=== PATIENT | female | born 1970 | race Caucasian/White ===

== ENCOUNTER 2019-07-10 10:48 | Emergency (ER) | payer OTHER, MEDICAID, SELFPAY ==
[2019-07-10 11:01] VITALS: BP 124/74; PULSE 66; RESP 16; TEMP 36.6; O2SAT 99
--- NOTE | 2019-07-10 11:29 | ED.URI ---
HPI - URI/Sore Throat General Chief Complaint: Upper Respiratory Infection Stated Complaint: Pos Sinus Infection Time Seen by Provider: 07/10/19 11:25 Source: patient and RN notes reviewed Mode of arrival: ambulatory Limitations: no limitations History of Present Illness HPI Narrative: 49-year-old female presents with concern for chronic sinusitis. Reports frontal sinus pain, low-grade fever, jaw pain, tooth pain, green sinus discharge. Reports symptoms started yesterday. MD elicited complaint: nasal congestion Related Data Home Medications Medication Instructions Recorded Confirmed levothyroxine 04/10/19 trazodone 04/10/19 vortioxetine [Trintellix] mg 04/10/19 Allergies Allergy/AdvReac Type Severity Reaction Status Date / Time No Known Allergies Allergy Verified 07/10/19 11:13 Review of Systems Review of Systems: Narrative: CONSTITUTIONAL: Reports malaise, low-grade fever. EYES: Denies visual changes, redness, or discharge. ENT: Reports rhinorrhea, congestion, sinus pain, otalgia and sore throat. CARDIOVASCULAR: Denies chest pain, palpitations, or edema. RESPIRATORY: Reports occasional cough. Denies dyspnea. GASTROINTESTINAL: Denies abdominal pain, nausea, vomiting, diarrhea SKIN: Denies rash or itching. MUSCULOSKELETAL: Denies myalgia. NEUROLOGIC: Reports headache. All systems reviewed & are unremarkable except as noted in HPI and below PMFSH Social History Social History Smoking status: Never smoker Alcohol intake: current Gender identity (if verbalized by the patient): Female Comments At time of signature, agree with nursing past medical, surgical, social and family history. There is no relevant family history pertinent to the presenting complaint Exam Narrative: Exam Narrative: GENERAL: Well-appearing, well-nourished, and in no acute distress. HEAD: Normocephalic EYES: PERRLA, conjunctivae clear ENT: Nares clear, turbinates edematous and erythematous, purulent discharge, frontal sinus tenderness. Mucous membranes moist. TM pearly kim with dull light reflex bilaterally; no tragal tenderness. Oropharynx erythematous without lesions. Tonsils not enlarged and without exudate, no drooling, no hoarseness, no trismus. NECK: Supple. No lymphadenopathy CHEST: Clear to auscultation, breath sounds equal. No wheezing, rhonchi, rales, or stridor. No respiratory distress, speaks in full sentences. HEART: Regular rate and rhythm. No murmur heard. Normal peripheral pulses. SKIN: Warm, dry, no rash. NEURO: Alert and oriented x3. PSYCH: Normal mood and affect Course Course Emergency Course: Patient is aware of diagnosis, understands and agrees to treatment plan. Anticipatory guidance given. Patient agrees to follow-up as directed and is aware of reasons to seek care at the emergency department. Portions of this record may have been created with voice recognition software Vital Signs Vital signs: Vital Signs Temperature 97.8 F 07/10/19 11:01 Pulse Rate 66 07/10/19 11:01 Respiratory Rate 16 07/10/19 11:01 Blood Pressure 124/74 07/10/19 11:01 Pulse Oximetry 99 07/10/19 11:01 Temperature 97.8 F 07/10/19 11:01 Pulse Rate 66 07/10/19 11:01 Respiratory Rate 16 07/10/19 11:01 Blood Pressure 124/74 07/10/19 11:01 Pulse Oximetry 99 07/10/19 11:01 Reviewed. MDM - URI/Sore Throat MDM Narrative Medical decision making narrative: Differential diagnosis considered: Strep pharyngitis, allergic rhinitis, upper respiratory tract infection, sinusitis, rhinosinusitis, nasopharyngitis. viral pharyngitis, otitis media, otitis externa, pneumonia, bronchitis, viral cough syndrome, viral syndrome, and influenza. Exam findings show no acute concerns or changes; patient is non-toxic appearing and is in no distress. Patient is appropriate for outpatient treatment and follow-up. Critical Care Time Critical Care Time Critical Care Time: No
== END 2019-07-10 11:38 | disposition home or self-care (01) ==
PROVIDERS: Emergency Provider Nurse Practitioner; PCP Internal Medicine
DX: J32.1 Chronic frontal sinusitis (principal)
CPT/HCPCS: 99213; G0463

== ENCOUNTER 2019-11-14 11:44 | Emergency (ER) | payer OTHER, MEDICAID, SELFPAY ==
--- NOTE | 2019-11-14 12:09 | ED.FEMALEGU ---
HPI - Female Genitourinary General Chief complaint: Urogenital-Female Stated complaint: uti Time Seen by Provider: 11/14/19 12:20 Source: patient and RN notes reviewed Mode of arrival: ambulatory Limitations: no limitations History of Present Illness HPI Narrative: 49-year-old female presents with concern for urinary tract infection. Reports symptoms started yesterday after swimming in the [place]. Reports burning, suprapubic pressure. Denies fever, abnormal vaginal discharge, nausea, vomiting, malaise. Reports taking Azo yesterday. MD elicited complaint: UTI Related Data Home Medications Medication Instructions Recorded Confirmed trazodone 04/10/19 alprazolam 11/14/19 bupropion HCl mg PO 11/14/19 estradiol VAGINAL 11/14/19 levothyroxine [Euthyrox] 11/14/19 vortioxetine [Trintellix] mg 11/14/19 Allergies Allergy/AdvReac Type Severity Reaction Status Date / Time No Known Allergies Allergy Verified 07/10/19 11:13 Review of Systems Review of Systems: Narrative: CONSTITUTIONAL: Denies malaise, chills, sweats, or fever. CARDIOVASCULAR: Denies chest pain, palpitations, or edema. RESPIRATORY: Denies cough or dyspnea. GASTROINTESTINAL: Denies abdominal pain, nausea, vomiting, diarrhea GENITOURINARY: Reports dysuria, hematuria, frequency, urgency, suprapubic pressure.. MUSCULOSKELETAL: Denies myalgia. All systems reviewed & are unremarkable except as noted in HPI and below PMFSH Social History Social History Smoking status: Never smoker Alcohol intake: current Gender identity (if verbalized by the patient): Female Comments At time of signature, agree with nursing past medical, surgical, social and family history. There is no relevant family history pertinent to the presenting complaint Exam Narrative: Exam Narrative: GENERAL: Well-appearing, well-nourished, and in no acute distress. HEAD: Normocephalic. EYES: PERRLA, conjunctivae clear. NECK: Supple. No lymphadenopathy CHEST: Clear to auscultation. No respiratory distress. HEART: Regular rate and rhythm. No murmur heard. Normal peripheral pulses. ABDOMEN: Soft, nontender upon palpation, nondistended, normal active bowel sounds, no palpable or pulsatile masses, no guarding. No CVA tenderness SKIN: Warm, dry, no rash. NEURO: Alert and oriented x3. PSYCH: Normal mood and affect Course Course Emergency Course: Patient is aware of diagnosis, understands and agrees to treatment plan. Anticipatory guidance given. Patient agrees to follow-up as directed and is aware of reasons to seek care at the emergency department. Portions of this record may have been created with voice recognition software Vital Signs Vital signs: Reviewed. MDM - Female Genitourinary MDM Narrative Medical decision making narrative: Exam findings and imaging show no acute concerns or changes; patient is non-toxic appearing and is in no distress. Patient is appropriate for outpatient treatment and follow-up. Differential Diagnosis Differential diagnosis: Likely urinary tract infection and cystitis Lab Data Attestation: I reviewed the patient's lab results. Critical Care Time Critical Care Time Critical Care Time: No Discharge Plan Discharge Clinical Impression: Symptoms of urinary tract infection Patient Disposition: Home, Self-Care Condition: Stable Instructions: Antibiotic Form, Urinary Tract Infection in Women (ED) Additional Instructions: We will send a urine culture off to the lab; if the culture identifies an organism that the prescribed antibiotic will not treat, you will receive a phone call from an urgent care staff member and an appropriate antibiotic will be prescribed. -Your symptoms should begin to improve within a day of starting antibiotics. But you should finish all the antibiotic pills you get. Otherwise your infection might come back. -Also recommend: drink more fluid, and urinate more frequen
[2019-11-14 12:15] VITALS: BP 120/71; PULSE 61; RESP 16; TEMP 35.7; O2SAT 98
--- NOTE | 2019-11-14 12:20 | PC.NURSE ---
in br to obtain ua spec.
== END 2019-11-14 12:44 | disposition home or self-care (01) ==
PROVIDERS: Emergency Provider Nurse Practitioner; PCP Internal Medicine
DX: R30.0 Dysuria (principal); R10.30 Lower abdominal pain, unspecified; E03.9 Hypothyroidism, unspecified; F41.9 Anxiety disorder, unspecified; F32.9 Major depressive disorder, single episode, unspecified
CPT/HCPCS: 81003; 87077; 87086; 87088; 87186; 99213; G0463

== ENCOUNTER 2020-01-28 09:31 | Emergency (ER) | payer OTHER, MEDICAID, SELFPAY ==
--- NOTE | 2020-01-28 09:39 | ED.URI ---
HPI - URI/Sore Throat General Chief Complaint: Upper Respiratory Infection Stated Complaint: ear pain /sinus headache/chest pains Time Seen by Provider: 01/28/20 09:48 Source: patient and RN notes reviewed Mode of arrival: ambulatory Limitations: no limitations History of Present Illness HPI Narrative: 56-year-old female with history of chronic sinus infection presents with concern of foul tasting sinus drainage, sinus pressure, pain, sinus headache, bilateral ear pain, swollen glands, fatigue. Reports 1 week history of cough which is improving. Reports occasional shortness of breath and heaviness when she breathes. Denies fever, body aches, chills, sweats. MD elicited complaint: nasal congestion Related Data Home Medications Medication Instructions Recorded Confirmed bupropion HCl [Wellbutrin XL] 150 mg PO DAILY 01/28/20 01/28/20 levothyroxine 112 mcg PO DAILY 01/28/20 01/28/20 vortioxetine [Trintellix] 20 mg PO DAILY 01/28/20 01/28/20 Allergies Allergy/AdvReac Type Severity Reaction Status Date / Time No Known Allergies Allergy Verified 01/28/20 09:49 Review of Systems Review of Systems: Narrative: CONSTITUTIONAL: Reports malaise, fatigue. Denies chills, sweats, or fever. EYES: Denies visual changes, redness, or discharge. ENT: Reports rhinorrhea, congestion, sinus pain, otalgia and sore throat. CARDIOVASCULAR: Denies chest pain, palpitations, or edema. RESPIRATORY: Reports cough, shortness of breath GASTROINTESTINAL: Denies abdominal pain, nausea, vomiting, diarrhea SKIN: Denies rash or itching. MUSCULOSKELETAL: Denies myalgia. NEUROLOGIC: Reports headache. All systems reviewed & are unremarkable except as noted in HPI and below PMFSH Past Medical History Medical History (Updated 01/28/20 @ 09:57 by Rosa Hou NP) Anxiety Depression Deviated septum 1999 Hypothyroidism Migraine Surgical History Surgical History (Updated 01/04/20 @ 11:53 by Janki Verde CMA) H/O breast augmentation 2013 H/O sinus surgery Open Window 2004 Social History Social History (Updated 01/07/20 @ 15:04 by Carolina Morse CMA) Smoking status: Never smoker Alcohol intake: current Gender identity (if verbalized by the patient): Female Comments At time of signature, agree with nursing past medical, surgical, social and family history. There is no relevant family history pertinent to the presenting complaint Exam Narrative: Exam Narrative: GENERAL: Well-appearing, well-nourished, and in no acute distress. HEAD: Normocephalic EYES: PERRLA, conjunctivae clear ENT: Nares clear, turbinates edematous and erythematous, sinus tenderness. Mucous membranes moist. TM pearly kim with dull light reflex bilaterally; no tragal tenderness. Oropharynx erythematous without lesions. Tonsils not enlarged and without exudate, no drooling, no hoarseness, no trismus, uvula midline. NECK: Supple. No lymphadenopathy CHEST: Clear to auscultation, breath sounds equal. No wheezing, rhonchi, rales, or stridor. No respiratory distress, speaks in full sentences. HEART: Regular rate and rhythm. No murmur heard. SKIN: Warm, dry, no rash. NEURO: Alert and oriented x3. PSYCH: Normal mood and affect Course Course Emergency Course: Patient is aware of diagnosis, understands and agrees to treatment plan. Anticipatory guidance given. Patient agrees to follow-up as directed and is aware of reasons to seek care at the emergency department. Portions of this record may have been created with voice recognition software Vital Signs Vital signs: Vital Signs Temperature 98.7 F 01/28/20 09:43 Pulse Rate 66 01/28/20 09:43 Respiratory Rate 16 01/28/20 09:43 Blood Pressure 115/76 01/28/20 09:43 Pulse Oximetry 100 01/28/20 09:43 Temperature 98.7 F 01/28/20 09:43 Pulse Rate 66 01/28/20 09:43 Respiratory Rate 16 01/28/20 09:43 Blood Pressure 115/76 01/28/20 09:43 Pulse Oximetry 100 01/28/20 09:43 Reviewed.
[2020-01-28 09:43] VITALS: BP 115/76; PULSE 66; RESP 16; TEMP 37.1; O2SAT 100
== END 2020-01-28 10:02 | disposition home or self-care (01) ==
PROVIDERS: Emergency Provider Nurse Practitioner; PCP Internal Medicine
DX: J32.9 Chronic sinusitis, unspecified (principal); J40 Bronchitis, not specified as acute or chronic; Z20.828 Contact with and (suspected) exposure to other viral communicable diseases; F41.9 Anxiety disorder, unspecified; F32.9 Major depressive disorder, single episode, unspecified; E03.9 Hypothyroidism, unspecified
CPT/HCPCS: 99213; G0463

== ENCOUNTER 2020-03-17 16:16 | Emergency (ER) | payer OTHER, MEDICAID, SELFPAY ==
[2020-03-17 16:25] VITALS: BP 119/94; PULSE 70; RESP 16; TEMP 36; O2SAT 100
[2020-03-17 16:33] VITALS: BP 119/94; PULSE 70; RESP 16; TEMP 36; O2SAT 100
--- NOTE | 2020-03-17 16:42 | ED.GENADULT ---
HPI - General Adult General Chief complaint: Abdominal Pain Stated complaint: abd pain Time Seen by Provider: 03/17/20 16:43 Source: patient and RN notes reviewed Mode of arrival: ambulatory Limitations: no limitations History of Present Illness HPI narrative: 50-year-old female presents with complaints of nausea and vomiting 3 days ago. Vomiting without blood or diarrhea. Symptoms has resolved since Tuesday03/14/20. No treatment. No current abdominal pain or cramping. Tolerating po intake well. No current exacerbating factors. Denies fever or chills. Denies headache, dizziness, back pain, dysuria, and blood in stool. LMP post menopausal. The patient reports she have not been diagnosed with COVID-19. Reena says she needs a COVID-19 test to return to work and evaluation. The patient reports she is not waiting for the results of a COVID-19 lab test. The patient reports she do not have fever, weakness, or fatigue. The patient reports she do not have a new or worsening cough or shortness of breath. Denies chest pain. The patient reports she do not have any rhinorrhea, congestion, sore or throat, loss of taste. Denies recent traveling. Denies concerns for COVID-19 or exposures been home with limited outdoor exposure except for essential household needs, work, and return home. At this time, patient is not suspected of having COVID-19. Some parts of this dictation were generated by voice recognition software and may contain typographical and/or grammatical inaccuracies. Related Data Home Medications Medication Instructions Recorded Confirmed bupropion HCl [Wellbutrin XL] 300 mg PO DAILY 01/28/20 03/17/20 vortioxetine [Trintellix] 20 mg PO DAILY 01/28/20 03/17/20 trazodone 100 mg PO DAILY 03/17/20 03/17/20 Allergies Allergy/AdvReac Type Severity Reaction Status Date / Time No Known Allergies Allergy Verified 01/28/20 09:49 Review of Systems Review of Systems: Narrative: CONSTITUTIONAL: Denies fever, chills, sweats. EYES: Denies visual changes, redness, discharge. ENT: Denies rhinorrhea, congestion, sore throat, otalgia. CARDIOVASCULAR: Denies chest pain, palpitations, edema. RESPIRATORY: Denies dyspnea, wheezing, cough. GASTROINTESTINAL: Denies abdominal pain, diarrhea. Complains of nausea and vomiting-Resolved GENITOURINARY: Denies dysuria, hematuria, abnormal discharge. SKIN: Denies rash or itching. MUSCULOSKELETAL: Denies acute back pain, joint pain, or myalgia. NEUROLOGIC: Denies numbness or focal weakness. PSYCHIATRIC: Denies anxiety or depression. All other systems reviewed are negative, except as documented in HPI and below. [facility] Past Medical History Medical History Anxiety Depression Deviated septum 1999 Hypothyroidism Migraine Surgical History Surgical History H/O breast augmentation 2013 H/O sinus surgery Open Window 2004 Family History Family History (Updated 03/17/20 @ 16:55 by SOULEYMANE Christopher) Father , Congenital heart defect at age 35 Family history of congestive heart failure Mother , Brain aneurysm at age 53 No problems noted. Social History Social History (Updated 03/17/20 @ 16:57 by SOULEYMANE Christopher) Smoking status: Never smoker Tobacco type: cigarettes Second hand tobacco smoke exposure: Yes (Significant other) Alcohol intake: current Substance use: never Living arrangements: with family Occupation/Education: occupation Additional occupation/education comments: [employer] Gender identity (if verbalized by the patient): Female Sexual Orientation (if Verbalized by the Patient): Straight or Heterosexual Comments At time of signature, I have reviewed and agree with nursing past medical, surgical, social, and family history. Please see nursing chart for further information
== END 2020-03-17 16:57 | disposition home or self-care (01) ==
PROVIDERS: Emergency Provider Nurse Practitioner Family; PCP Internal Medicine
DX: K52.9 Noninfective gastroenteritis and colitis, unspecified (principal); Z20.828 Contact with and (suspected) exposure to other viral communicable diseases; E03.9 Hypothyroidism, unspecified; F32.9 Major depressive disorder, single episode, unspecified
CPT/HCPCS: 99213; G0463

== ENCOUNTER 2021-01-16 12:08 | Emergency (ER) | payer OTHER, MEDICAID, SELFPAY ==
--- NOTE | ~2021-01-16 | XR_ITS ---
EXAMINATION: XR knee RT min 4V DATE: 01/16/2021 12:37 INDICATION: Right knee injury. TECHNIQUE: 4 views of right knee were obtained. COMPARISON: None. FINDINGS: Bone alignment is normal. No fracture. Joint spaces are normal. No knee joint effusion. IMPRESSION: 1. Normal right knee. Reviewed, dictated and finalized at location B. IMPRESSION: 1. Normal right knee.
[2021-01-16 12:23] VITALS: BP 130/89; PULSE 58; RESP 16; TEMP 36.6; O2SAT 100
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
== END 2021-01-16 13:01 | disposition home or self-care (01) ==
PROVIDERS: Emergency Provider Nurse Practitioner; PCP Internal Medicine
DX: S80.01XA Contusion of right knee, initial encounter (principal); W51.XXXA Accidental striking against or bumped into by another person, initial encounter; E03.9 Hypothyroidism, unspecified; F32.9 Major depressive disorder, single episode, unspecified; F41.9 Anxiety disorder, unspecified
CPT/HCPCS: 73564; 99213; G0463

== ENCOUNTER 2021-02-05 11:33 | Emergency (ER) | payer OTHER, MEDICAID, SELFPAY ==
[2021-02-05 11:45] VITALS: BP 121/69; PULSE 61; RESP 16; TEMP 35.9; O2SAT 99
--- NOTE | 2021-02-05 12:33 | ED.URI ---
HPI - URI/Sore Throat General Chief Complaint: Upper Respiratory Infection Stated Complaint: Congestion,Runny Nose Source: patient and RN notes reviewed Limitations: no limitations History of Present Illness HPI Narrative: The vaccinated patient, who is a non-smoker/nondrinker, presents with sinus problem. Patient states she is followed by ENT with prior surgeries, the last in 2005. She now complains of a typical 2-day history of upper gum discomfort, postnasal drip, congestion. No fever, cough, sore throat, earache; she has had negative Covid screening by her work/school,no S OB, loss of taste/smell, wheezing/sneezing, CP. Symptoms are mild unrelieved with OTC preparations like Flonase and Mucinex. Related Data Home Medications Medication Instructions Recorded Confirmed bupropion HCl [Wellbutrin XL] 300 mg PO DAILY 01/28/20 02/05/21 vortioxetine [Trintellix] 20 mg PO DAILY 01/28/20 02/05/21 trazodone 100 mg PO DAILY 03/17/20 02/05/21 Allergies Allergy/AdvReac Type Severity Reaction Status Date / Time No Known Allergies Allergy Verified 02/05/21 11:52 Review of Systems Review of Systems: General/Constitutional: No weight loss,fever Eyes: N0: Redness,discharge Ears/Nose/Throat: No: Epistaxis,ear discharge Respiratory: Denies: Hemoptysis Gastrointestinal: No Vomiting, Bleeding-rectal Skin: No Lumps, eruption Neurologic: No Focal Weakness,Sz Hematologic: Denies: Petechiae/Purpura Psychiatric: No: Suicida ideationl All Other Systems: Reviewed and Negative [facility] Past Medical History Medical History Anxiety Depression Deviated septum 1999 Genital herpes Hypothyroidism Migraine Surgical History Surgical History H/O breast augmentation 2013 H/O sinus surgery Open Window 2004 Family History Family History Father , Congenital heart defect at age 35 Family history of congestive heart failure Mother , Brain aneurysm at age 53 No problems noted. Social History Social History Smoking status: Never smoker Tobacco type: cigarettes Second hand tobacco smoke exposure: Yes (Significant other) Alcohol intake: current Alcohol use details: occasional Substance use: never Additional occupation/education comments: [employer] Gender identity (if verbalized by the patient): Female Sexual Orientation (if Verbalized by the Patient): Straight or Heterosexual Comments At time of signature, agree with nursing past medical, surgical, social and family history. There is no relevant family history pertinent to the presenting complaint Exam Narrative: General Appearance: Well appearing, Well nourished EYE: PERRLA, Conjunctiva clear Ears: Auditory canal normal, TM normal Nose: Rhinorrhea, Mucousal erythema, sinus tenderness Mouth/Throat: MM moist, Uvula midline, Pharyngeal erythema Neck: Supple, No adenopathy Respiratory: No respiratory distress, Breath sounds equal, Clear to auscultation Cardiovascular: RRR, No JVD Musculoskeletal: Non tender, Normal strength Skin: Warm, Dry Neurological: A&O x3, CN II-XII intact Psychiatric: Normal mood, Normal affect Course Vital Signs Vital signs: Vital Signs Temperature 96.7 F L 02/05/21 11:45 Pulse Rate 61 02/05/21 11:45 Respiratory Rate 16 02/05/21 11:45 Blood Pressure 121/69 02/05/21 11:45 Pulse Oximetry 99 02/05/21 11:45 Temperature 96.7 F L 02/05/21 11:45 Pulse Rate 61 02/05/21 11:45 Respiratory Rate 16 02/05/21 11:45 Blood Pressure 121/69 02/05/21 11:45 Pulse Oximetry 99 02/05/21 11:45 Discharge Plan Discharge Clinical Impression: Rhinosinusitis Patient Disposition: Home, Self-Care Condition: Stable Instructions: Sinusitis (ED) Presc
[2021-02-06 18:57] LABS: SARS-CoV-2 RNA PCR Negative
== END 2021-02-05 12:40 | disposition home or self-care (01) ==
PROVIDERS: Emergency Provider Emergency Medicine; PCP Internal Medicine
DX: J32.9 Chronic sinusitis, unspecified (principal); Z20.822 Contact with and (suspected) exposure to COVID-19; E03.9 Hypothyroidism, unspecified; F41.9 Anxiety disorder, unspecified; F32.9 Major depressive disorder, single episode, unspecified
CPT/HCPCS: 99213; C9803; G0463; U0003; U0005

== ENCOUNTER 2021-03-14 12:20 | Emergency (ER) | payer OTHER, MEDICAID, SELFPAY ==
[2021-03-14 12:29] VITALS: BP 143/76; PULSE 63; RESP 15; TEMP 36.3; O2SAT 100
--- NOTE | 2021-03-14 12:48 | ED.DENTAL ---
HPI - Dental/Oral General Chief complaint: Dental/Oral Stated complaint: left lower toothache Time Seen by Provider: 03/14/21 12:29 Source: patient Mode of arrival: ambulatory Limitations: no limitations History of Present Illness HPI Narrative: Left lower teeth pain started 2 days ago. History of broken teeth at that area, could not afford to have crown 2 years ago. Patient denies any fever, chills, nausea, vomiting, headache, difficulty swallowing or breathing. Related Data Home Medications Medication Instructions Recorded Confirmed bupropion HCl [Wellbutrin XL] 300 mg PO DAILY 01/28/20 02/05/21 vortioxetine [Trintellix] 20 mg PO DAILY 01/28/20 02/05/21 trazodone 100 mg PO DAILY 03/17/20 02/05/21 Allergies Allergy/AdvReac Type Severity Reaction Status Date / Time No Known Allergies Allergy Verified 03/14/21 12:29 Review of Systems Review of Systems: CONSTITUTIONAL: Denies fever, chills, or sweats. EYES: Denies visual changes, redness, or discharge. ENT: Denies rhinorrhea, congestion, sore throat, or otalgia. CARDIOVASCULAR: Denies chest pain, palpitations, or edema. RESPIRATORY: Denies cough or dyspnea. GASTROINTESTINAL: Denies abdominal pain, nausea, vomiting, or diarrhea. GENITOURINARY: Denies dysuria or hematuria. SKIN: Denies rash or itching. MUSCULOSKELETAL: Denies back pain, joint pain, or myalgia. NEUROLOGIC: Denies headache, numbness, or weakness. PSYCHIATRIC: Denies anxiety or depression. [facility] Past Medical History Medical History Anxiety Depression Deviated septum 1999 Genital herpes Hypothyroidism Migraine Surgical History Surgical History H/O breast augmentation 2013 H/O sinus surgery Open Window 2004 Family History Family History Father , Congenital heart defect at age 35 Family history of congestive heart failure Mother , Brain aneurysm at age 53 No problems noted. Social History Social History Smoking status: Never smoker Tobacco type: cigarettes Second hand tobacco smoke exposure: Yes (Significant other) Alcohol intake: current Alcohol use details: occasional Substance use: never Additional occupation/education comments: [email or web address] Gender identity (if verbalized by the patient): Female Sexual Orientation (if Verbalized by the Patient): Straight or Heterosexual Exam Narrative: General appearance: Well-developed, well-nourished Skin: Normal color Head: Normocephalic, nontraumatic Eyes: Clear conjunctiva ENT: Oropharynx normal, ears normal, nose normal Neck: Supple, nontender Chest and respiratory: Airway patent, no respiratory distress, no accessory muscle use Heart: Regular rate/rhythm Vascular: Normal peripheral pulses, normal capillary refill. Neurologic: Alert and oriented ?3, [employer] is normal as tested, no gross motor deficit HENMT: Teeth image: 1. Broken tooth 2. Dental decay 3. Dental decay surrounded by inflamed gum, no abscess Course Course Emergency Course: Stable Vital Signs Vital signs: Vital Signs Temperature 36.3 C L 03/14/21 12:29 Pulse Rate 63 03/14/21 12:29 Respiratory Rate 15 03/14/21 12:29 Blood Pressure 143/76 H 03/14/21 12:29 Pulse Oximetry 100 03/14/21 12:29 Temperature 36.3 C L 03/14/21 12:29 Pulse Rate 63 03/14/21 12:29 Respiratory Rate 15 03/14/21 12:29 Blood Pressure 143/76 H 03/14/21 12:29 Pulse Oximetry 100 03/14/21 12:29 MDM - Dental/Oral
[2021-03-14 13:05] VITALS: BP 142/70; PULSE 70; RESP 18; O2SAT 100
== END 2021-03-14 13:05 | disposition home or self-care (01) ==
PROVIDERS: Emergency Provider Emergency Medicine; PCP Internal Medicine
DX: K02.9 Dental caries, unspecified (principal); F41.9 Anxiety disorder, unspecified; F32.A Depression, unspecified; E03.9 Hypothyroidism, unspecified; Z77.22 Contact with and (suspected) exposure to environmental tobacco smoke (acute) (chronic)
CPT/HCPCS: 99283

== ENCOUNTER 2023-02-16 11:50 | Outpatient (CLI) | payer OTHER, MEDICAID, SELFPAY ==
[2023-02-16 13:29] LABS: Basophils Absolute Auto 0.1 K/mm3 (0.0-0.1); Eosinophils Absolute Auto 0.1 K/mm3 (0-0.3); Eosinophils Percent Auto 1.5 % (0-4.4); Hematocrit 37.1 % (37.0-47.0); Hemoglobin 11.7 g/dL (12.0-15.0); Immature Granulocyte Absolute 0.01 K/mm3 (0.00-0.031); Immature Granulocyte Percent A 0.2 % (0-0.5); Lymphocytes Absolute Auto 1.28 K/mm3 (0.9-3.2); Lymphocytes Percent Auto 20.7 % (18.3-44.2); Mean Corpuscular HGB Conc 31.5 g/dl (32-36); Mean Corpuscular Hemoglobin 28.9 pg (26-34); Mean Corpuscular Volume 91.6 fl (80-100); Monocytes Absolute Auto 0.6 K/mm3 (0.1-0.6); Monocytes Percent Auto 9.9 % (2.6-8.5); Neutrophils Absolute Auto 4.1 K/mm3 (1.3-6.7); Neutrophils Percent Auto 66.7 % (45.5-73.1); Platelet Count Result 324 k/mm3 (150-375); Red Blood Count 4.05 M/mm3 (4.2-5.4); Red Cell Distribution Width 12.8 % (11.5-14.5); White Blood Count 6.2 K/mm3 (4.5-10.0)
[2023-02-16 14:23] LABS: Thyroid Stimulating Hormone 0.292 uIU/mL (0.465-4.680)
[2023-02-16 14:37] LABS: Alanine Aminotransferase 15 U/L (6-35); Albumin Level 3.8 g/dL (3.5-5.1); Alkaline Phosphatase 61 U/L (38-126); Anion Gap 4 mmol/L (8-16); Aspartate Amino Transferase 30 U/L (14-36); Bilirubin,Total 0.4 mg/dL (0.2-1.3); Blood Urea Nitrogen 10 mg/dL (7-17); Carbon Dioxide 35 mmol/L (22-30); Chloride 103 mmol/L (98-107); Estimated Glomerular Filt Rate > 60; Glucose 109 mg/dL (65-110); Potassium 2.8 mmol/L (3.4-5.0); Sodium 142 mmol/L (137-145)
[2023-02-19 13:03] LABS: Testosterone Total 16 ng/dL (2-45)
[2023-02-20 06:57] LABS: FSH 102.1 mIU/mL (***); LH 35.3 mIU/mL (***); Progesterone <0.2 ng/mL (***)
[2023-02-21 16:41] LABS: Estrogen 66 pg/mL
[2023-02-22 07:31] LABS: Immunoglobulin A 189 mg/dL (47-310); TTG IGA AB <1.0 U/mL (<15.0)
== END 2023-02-16 11:51 | disposition home or self-care (01) ==
LOC: ANHGOSHLAB 11:52
PROVIDERS: PCP Internal Medicine; Visit Provider Nurse Practitioner
DX: Z13.29 Encounter for screening for other suspected endocrine disorder (principal); E34.9 Endocrine disorder, unspecified; F32.9 Major depressive disorder, single episode, unspecified; F41.9 Anxiety disorder, unspecified; E03.9 Hypothyroidism, unspecified; N89.8 Other specified noninflammatory disorders of vagina; N95.8 Other specified menopausal and perimenopausal disorders
CPT/HCPCS: 36415; 80053; 82533; 82672; 82784; 83001; 83002; 84144; 84403; 84443; 85025; 86364

== ENCOUNTER 2023-02-18 09:50 | Outpatient (CLI) | payer OTHER, MEDICAID, SELFPAY ==
[2023-02-18 16:47] LABS: Anion Gap 3 mmol/L (8-16); Blood Urea Nitrogen 9 mg/dL (7-17); Calcium 9.1 mg/dL (8.4-10.2); Carbon Dioxide 35 mmol/L (22-30); Chloride 104 mmol/L (98-107); Estimated Glomerular Filt Rate > 60; Glucose 92 mg/dL (65-110); Potassium 3.3 mmol/L (3.4-5.0); Sodium 142 mmol/L (137-145)
== END 2023-02-18 09:51 | disposition home or self-care (01) ==
LOC: ANHGOSHLAB 09:52
PROVIDERS: PCP Internal Medicine; Visit Provider Nurse Practitioner
DX: E87.6 Hypokalemia (principal)
CPT/HCPCS: 36415; 80048

== ENCOUNTER 2023-03-03 10:25 | Outpatient (CLI) | payer OTHER, MEDICAID, SELFPAY ==
[2023-03-03 18:42] LABS: Basophils Absolute Auto 0.1 K/mm3 (0.0-0.1); Basophils Percent Auto 1.2 % (0.2-1.2); Eosinophils Absolute Auto 0.2 K/mm3 (0-0.3); Hematocrit 34.4 % (37.0-47.0); Hemoglobin 11.2 g/dL (12.0-15.0); Immature Granulocyte Absolute 0.01 K/mm3 (0.00-0.031); Immature Granulocyte Percent A 0.2 % (0-0.5); Lymphocytes Absolute Auto 1.18 K/mm3 (0.9-3.2); Lymphocytes Percent Auto 17.9 % (18.3-44.2); Mean Corpuscular HGB Conc 32.6 g/dl (32-36); Mean Corpuscular Hemoglobin 30.1 pg (26-34); Mean Corpuscular Volume 92.5 fl (80-100); Monocytes Absolute Auto 0.5 K/mm3 (0.1-0.6); Monocytes Percent Auto 7.1 % (2.6-8.5); Neutrophils Absolute Auto 4.6 K/mm3 (1.3-6.7); Neutrophils Percent Auto 70.6 % (45.5-73.1); Platelet Count Result 302 k/mm3 (150-375); Red Blood Count 3.72 M/mm3 (4.2-5.4); Red Cell Distribution Width 13.2 % (11.5-14.5); White Blood Count 6.6 K/mm3 (4.5-10.0)
[2023-03-03 19:15] LABS: Thyroid Stimulating Hormone 0.955 uIU/mL (0.465-4.680)
[2023-03-03 19:19] LABS: Alanine Aminotransferase 13 U/L (6-35); Albumin Level 3.6 g/dL (3.5-5.1); Alkaline Phosphatase 53 U/L (38-126); Anion Gap 3 mmol/L (8-16); Aspartate Amino Transferase 21 U/L (14-36); Bilirubin,Total 0.3 mg/dL (0.2-1.3); Blood Urea Nitrogen 9 mg/dL (7-17); Calcium 8.6 mg/dL (8.4-10.2); Carbon Dioxide 35 mmol/L (22-30); Chloride 103 mmol/L (98-107); Estimated Glomerular Filt Rate > 60; Glucose 90 mg/dL (65-110); Potassium 2.7 mmol/L (3.4-5.0); Sodium 141 mmol/L (137-145)
== END 2023-03-03 10:26 | disposition home or self-care (01) ==
LOC: ANHGOSHLAB 10:29
PROVIDERS: Nurse Practitioner; PCP Internal Medicine; Visit Provider Clinical Nurse Specialist
DX: E87.6 Hypokalemia (principal); E03.9 Hypothyroidism, unspecified; D64.9 Anemia, unspecified
CPT/HCPCS: 36415; 80053; 84443; 85025

== ENCOUNTER 2023-03-07 10:02 | Outpatient (CLI) | payer OTHER, MEDICAID, SELFPAY ==
[2023-03-07 12:01] LABS: Anion Gap 0 mmol/L (8-16); Blood Urea Nitrogen 9 mg/dL (7-17); Calcium 8.9 mg/dL (8.4-10.2); Carbon Dioxide 36 mmol/L (22-30); Chloride 104 mmol/L (98-107); Estimated Glomerular Filt Rate > 60; Glucose 87 mg/dL (65-110); Potassium 3.3 mmol/L (3.4-5.0); Sodium 140 mmol/L (137-145)
[2023-03-07 12:29] LABS: Iron 72 ug/dL (37-170)
[2023-03-07 12:39] LABS: Percent Iron Saturation 30 % (20-50)
[2023-03-07 13:06] LABS: Folic Acid 8.8 ng/mL (2.76->20)
== END 2023-03-07 10:03 | disposition home or self-care (01) ==
LOC: ANHLAB 10:03
PROVIDERS: PCP Internal Medicine; Visit Provider Clinical Nurse Specialist
DX: D64.9 Anemia, unspecified (principal); E87.6 Hypokalemia
CPT/HCPCS: 36415; 80048; 82607; 82728; 82746; 83540; 83550

== ENCOUNTER 2023-03-15 10:28 | Outpatient (CLI) | payer OTHER, MEDICAID, SELFPAY ==
--- NOTE | ~2023-03-15 | XR_ITS ---
EXAMINATION: XR abdomen/kub 1V DATE: 03/15/2023 10:50 INDICATION: Diarrhea. TECHNIQUE: A supine view of the abdomen on 2 radiographs was obtained. COMPARISON: None. FINDINGS: There are no dilated loops of bowel. There is a small volume of stool in the colon. IMPRESSION: 1. Normal bowel gas pattern. Reviewed, dictated and finalized at location E.
== END 2023-03-15 10:29 | disposition home or self-care (01) ==
LOC: ANHIMG 10:34
PROVIDERS: PCP Internal Medicine; Visit Provider Nurse Practitioner
DX: R19.7 Diarrhea, unspecified (principal); R14.0 Abdominal distension (gaseous); R63.4 Abnormal weight loss; R19.8 Other specified symptoms and signs involving the digestive system and abdomen
CPT/HCPCS: 74018

== ENCOUNTER 2023-08-03 15:54 | Emergency (ER) | payer OTHER, MEDICAID, SELFPAY ==
--- NOTE | ~2023-08-03 | XR_ITS ---
EXAMINATION: XR shoulder LT min 2V INDICATION: Left shoulder pain TECHNIQUE: Four views of the left shoulder are submitted. COMPARISON: 08/17/2018 FINDINGS: Normal alignment. No fracture. Glenohumeral and acromioclavicular joint spaces are normal. Soft tissues are unremarkable. IMPRESSION: 1. No acute osseous abnormality. Reviewed, dictated and finalized at location B. [employer]
[2023-08-03 16:27] VITALS: BP 127/76; PULSE 72; RESP 16; TEMP 37.1; O2SAT 98
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
== END 2023-08-03 17:25 | disposition home or self-care (01) ==
PROVIDERS: Emergency Provider Nurse Practitioner Family; PCP Nurse Practitioner
DX: S40.012A Contusion of left shoulder, initial encounter (principal); W50.0XXA Accidental hit or strike by another person, initial encounter; Y99.0 Civilian activity done for income or pay; E03.9 Hypothyroidism, unspecified; F41.9 Anxiety disorder, unspecified; F32.A Depression, unspecified
CPT/HCPCS: 73030; 99213; G0463

== ENCOUNTER 2023-11-10 07:00 | Outpatient (NON) | payer OTHER, SELFPAY | END 2023-11-10 07:01 | disposition home or self-care (01) | LOC: ANHLAB 11-11 14:34 | PROVIDERS: PCP Nurse Practitioner; Visit Provider Internal Medicine Gastroenterology | DX: R14.0 Abdominal distension (gaseous) (principal) | CPT/HCPCS: 88305; 88313 ==

== ENCOUNTER 2023-11-10 07:05 | Day surgery (SDC) | payer OTHER, SELFPAY ==
[2023-04-15 12:20] VITALS: BMI 21.7
--- NOTE | 2023-05-02 07:12 | WPDANESEPPF ---
Anes - Initial Pre Proc Eval Procedure: Operation Date: 05/02/23 08:30 Proposed Procedures p Diagnostic Colonoscopy - Chito Givens MD Date/Time: 05/02/23 07:12 Surgeon: Chito Givens MD Pre Op Diagnosis: Diarrhea, ABD Distension, Abnormal Weight Loss Patient Data Age: 53 Gender: F Height: 1.57 m Weight: 54 kg Allergies Allergy/AdvReac Type Severity Reaction Status Date / Time cat dander Allergy Mild sneezing, Verified 03/15/23 09:34 watering eyes Home Medications Medication Instructions Recorded Confirmed Type vortioxetine 20 mg tablet 20 mg PO DAILY 01/28/20 04/15/23 History (Trintellix) trazodone 100 mg tablet 100 mg PO DAILY 03/17/20 04/15/23 History valacyclovir 500 mg tablet See Rx Instructions .Route 06/30/22 04/15/23 Rx .COMPLEX #30 tabs estradiol 0.01% (0.1 mg/gram) 1 g vaginal 3XW #42.5 grams 12/02/22 04/15/23 Rx vaginal cream bupropion HCl 150 mg 24 hr tablet, 300 mg PO DAILY 02/16/23 04/15/23 History extended release (Wellbutrin XL) bupropion HCl 300 mg 24 hr tablet, 300 mg PO QAM 02/16/23 04/15/23 History extended release buspirone 7.5 mg tablet 7.5 mg PO BID 02/16/23 04/15/23 History levothyroxine 75 mcg tablet 75 mcg PO DAILY #90 tabs 02/16/23 04/15/23 Rx Patient hx anesthesia problems: none Family hx anesthesia problems: none Results Review: All pre-operative results and documents have been reviewed as part of the pre-operative evaluation. [facility] Past Medical History Medical History (Updated 03/15/23 @ 10:08 by Barb Ron APRN) Anxiety Bloating Borborygmi Depression Deviated septum 1999 Genital herpes Hypothyroidism Leukopenia Saw heme/onc 03/19 Migraine Weight loss Surgical History Surgical History H/O breast augmentation 2013 H/O gynecological procedure colposcopy 11/21/19 H/O sinus surgery Open Window 2005 deviated septum Family History Family History Father , Congenital heart defect at age 35 Family history of congestive heart failure Mother , Brain aneurysm at age 53 No problems noted. Social History Social History Smoking status: Never smoker Alcohol intake: never Alcohol use details: occasional Substance use: never Substance use type: does not use Lack of Transportation: No Lack of Food: Never True Current Housing: I Have Housing Concerned About Future Housing: No Difficulty Paying Gas/Electric Bills: No Difficulty Paying for Meds: No Currently Unemployed: No Education: Associate Degree Living arrangements: with family Occupation/Education: occupation Additional occupation/education comments: [employer] Gender identity (if verbalized by the patient): Female Sexual Orientation (if Verbalized by the Patient): Straight or Heterosexual Spiritual care concerns: No Anes - Eval Final PreProcedure Day of Procedure 05/02/23 07:12 Patient weight: normal Heart: regular rate and rhythm Lungs: clear to auscultation and normal air movement Airway: Mallampati scale class II Neurological: alert and oriented Last oral intake: >/= 8 hours ASA classification: II Emergent: no Anesthetic plan: proceed Anesthesia type and monitoring: general GIVS and standard monitoring Results Review: All pre-operative results and documents have been reviewed as part of the pre-operative evaluation. Informed Consent: The patient's anesthetic plan and its attendant risks and benefits were discussed with the patient/family/POA. Questions were solicited and answers provided to the satisfaction of the patient/family/POA.
[2023-10-19 10:00] VITALS: BMI 20.7
[2023-11-08 14:55] VITALS: BMI 21.7
[2023-11-10 07:52] VITALS: BMI 21.7
[2023-11-10 07:53] VITALS: BP 138/88; PULSE 66; RESP 16; TEMP 36.9; O2SAT 99
[2023-11-10] MEDS: LACTATED RINGERS 1,000 ML 150 ML IV CONT (07:57)
--- NOTE | 2023-11-10 08:12 | WPDANESEPPF ---
Anes - Initial Pre Proc Eval Procedure: Operation Date: 11/10/23 09:00 Proposed Procedures p Diagnostic Colonoscopy - Romero Aguirre MD Date/Time: 11/10/23 08:12 Surgeon: Romero Aguirre MD Pre Op Diagnosis: Diarrhea, ABD Distension, Abnormal Weight Loss Patient Data Age: 53 Gender: F Height: 1.57 m Weight: 53.9 kg Last Vital Signs Temp 36.9 C 11/10/23 07:53 Pulse 66 11/10/23 07:53 Resp 16 11/10/23 07:53 BP 138/88 11/10/23 07:53 Pulse Ox 99 11/10/23 07:53 O2 Del Method Room Air 11/10/23 07:53 Allergies Allergy/AdvReac Type Severity Reaction Status Date / Time cat dander Allergy Mild sneezing, Verified 11/10/23 07:49 watering eyes Home Medications Medication Instructions Recorded Confirmed Type vortioxetine 20 mg tablet 20 mg PO DAILY 01/28/20 11/10/23 History (Trintellix) trazodone 100 mg tablet 100 mg PO DAILY 03/17/20 11/10/23 History bupropion HCl 150 mg 24 hr tablet, 300 mg PO DAILY 02/16/23 11/10/23 History extended release (Wellbutrin XL) buspirone 7.5 mg tablet 7.5 mg PO BID 02/16/23 11/10/23 History alprazolam 0.5 mg tablet 0.5 mg PO DAILY PRN Anxiety 08/03/23 11/10/23 History levothyroxine 75 mcg tablet 75 mcg PO DAILY #30 tabs 10/25/23 11/10/23 Rx estradiol 1 mg tablet 1 mg PO DAILY #90 tabs 10/31/23 11/10/23 Rx estradiol 10 mcg vaginal tablet 10 mcg vaginal 2XW #30 tabs 10/31/23 11/10/23 Rx (Vagifem) progesterone micronized 200 mg 200 mg PO QHS 90 days #90 caps 10/31/23 11/10/23 Rx capsule (Prometrium) valacyclovir 500 mg tablet See Rx Instructions .Route 11/08/23 11/10/23 History .COMPLEX PRN other Patient hx anesthesia problems: none Family hx anesthesia problems: none Results Review: All pre-operative results and documents have been reviewed as part of the pre-operative evaluation. [facility] Past Medical History Medical History Anxiety Bloating Borborygmi Depression Deviated septum 1999 Genital herpes Hypothyroidism Leukopenia Saw heme/onc 03/19 Migraine Weight loss Surgical History Surgical History H/O breast augmentation 2013 H/O gynecological procedure colposcopy 11/21/19 H/O sinus surgery Open Window 2004 deviated septum Family History Family History Father , Congenital heart defect at age 35 Family history of congestive heart failure Mother , Brain aneurysm at age 53 No problems noted. Social History Social History Smoking status: Never smoker Alcohol intake: never Alcohol use details: occasional Substance use: never Substance use type: does not use Do You Feel Safe in your Home?: Yes Lack of Transportation: No Lack of Food: Never True Current Housing: I Have Housing Concerned About Future Housing: No Difficulty Paying Gas/Electric Bills: No Difficulty Paying for Meds: No Currently Unemployed: No Education: Associate Degree Living arrangements: with family Occupation/Education: occupation Additional occupation/education comments: [employer] Gender identity (if verbalized by the patient): Female Sexual Orientation (if Verbalized by the Patient): Straight or Heterosexual Spiritual care concerns: No Anes - Eval Final PreProcedure Day of Procedure 11/10/23 08:12 Patient weight: normal Heart: regular rate and rhythm Lungs: clear to auscultation Airway: Mallampati scale class II Neurological: alert and oriented Last oral intake: >/= 8 hours ASA classification: II Emergent: no Anesthetic plan: proceed Anesthesia type and monitoring: general GIVS and standard monitoring Results Review: All pre-operative results and documents have been reviewed as part of the pre-operative evaluation. Informed Cons
--- NOTE | 2023-11-10 08:26 | PM.HPGS ---
History of Present Illness History of Present Illness Consent: Risks, benefits, and alternatives have been discussed and questions answered. Patient agrees to proceed with procedure. Chief complaint: Diarrhea, ABD Distension, Abnormal Weight Loss Narrative: Reena Raymundo is a 53 year old female is for colonoscopy. Patient reports having had diarrhea since last summer. She typically has soft stools. Denies any normal stools. She denies any bleeding. She has had no fever. She denies any specific abdominal pain but has occasional abdominal bloating and discomfort. Patient has never had previous colonoscopy. a. Review of Systems Review of Systems: All systems reviewed & are unremarkable except as noted in HPI and below PMFSH Past Medical History Medical History Anxiety Bloating Borborygmi Depression Deviated septum 1999 Genital herpes Hypothyroidism Leukopenia Saw heme/onc 03/19 Migraine Weight loss Surgical History Surgical History H/O breast augmentation 2013 H/O gynecological procedure colposcopy 11/21/19 H/O sinus surgery Open Window 2004 deviated septum Family History Family History Father , Congenital heart defect at age 35 Family history of congestive heart failure Mother , Brain aneurysm at age 53 No problems noted. Social History Social History Smoking status: Never smoker Alcohol intake: never Alcohol use details: occasional Substance use: never Substance use type: does not use Do You Feel Safe in your Home?: Yes Lack of Transportation: No Lack of Food: Never True Current Housing: I Have Housing Concerned About Future Housing: No Difficulty Paying Gas/Electric Bills: No Difficulty Paying for Meds: No Currently Unemployed: No Education: Associate Degree Living arrangements: with family Occupation/Education: occupation Additional occupation/education comments: [employer] Gender identity (if verbalized by the patient): Female Sexual Orientation (if Verbalized by the Patient): Straight or Heterosexual Spiritual care concerns: No Meds Home Medications and Allergies Home Medications Medication Instructions Recorded Confirmed Type vortioxetine 20 mg tablet 20 mg PO DAILY 01/28/20 11/10/23 History (Trintellix) trazodone 100 mg tablet 100 mg PO DAILY 03/17/20 11/10/23 History bupropion HCl 150 mg 24 hr tablet, 300 mg PO DAILY 02/16/23 11/10/23 History extended release (Wellbutrin XL) buspirone 7.5 mg tablet 7.5 mg PO BID 02/16/23 11/10/23 History alprazolam 0.5 mg tablet 0.5 mg PO DAILY PRN Anxiety 08/03/23 11/10/23 History levothyroxine 75 mcg tablet 75 mcg PO DAILY #30 tabs 10/25/23 11/10/23 Rx estradiol 1 mg tablet 1 mg PO DAILY #90 tabs 10/31/23 11/10/23 Rx estradiol 10 mcg vaginal tablet 10 mcg vaginal 2XW #30 tabs 10/31/23 11/10/23 Rx (Vagifem) progesterone micronized 200 mg 200 mg PO QHS 90 days #90 caps 10/31/23 11/10/23 Rx capsule (Prometrium) valacyclovir 500 mg tablet See Rx Instructions .Route 11/08/23 11/10/23 History .COMPLEX PRN other Allergies Allergy/AdvReac Type Severity Reaction Status Date / Time cat dander Allergy Mild sneezing, Verified 11/10/23 07:49 watering eyes Vital Signs Vital Signs - 24 hr 11/10/23 07:53 Temperature 98.4 F Pulse Rate 66 Respiratory Rate 16 Blood Pressure 138/88 Pulse Oximetry 99 Oxygen Delivery Room Air Exam Narrative: Physical exam reveals patient to be alert. Vital signs stable. HEENT exam is unremarkable. Patient is anicteric. Lungs are clear to auscultation and to percussion heart is without murmur or extra sounds. Abdomen bowel sounds are present soft nontender with no organomegaly. Di
[2023-11-10 09:16] VITALS: BP 115/72; PULSE 60; RESP 16; O2SAT 100
[2023-11-10 09:26] VITALS: BP 126/66; PULSE 64; RESP 16; O2SAT 100
--- NOTE | 2023-11-10 09:30 | WPDANESPN ---
Anes - Prog Note Post-Op Date/Time: 11/10/23 09:30 Cardiovascular status: normal Respiratory status: normal Airway patency: baseline Mental status: baseline Post-Op hydration status: normal Vital Signs: Last Vital Signs Temp 36.9 C 11/10/23 07:53 Pulse 60 11/10/23 09:16 Resp 16 11/10/23 09:16 BP 115/72 11/10/23 09:16 Pulse Ox 100 11/10/23 09:16 O2 Del Method Room Air 11/10/23 09:16 Pain Score (VAS): 0/10 I/O: Intake & Output 11/09/23 11/10/23 11/10/23 23:59 07:59 15:59 Intake Total 300 Balance 300 Patient Feedback: Patient satisfied with anesthetic care.
[2023-11-10 09:36] VITALS: BP 132/87; PULSE 60; RESP 16; O2SAT 100
== END 2023-11-10 09:43 | disposition home or self-care (01) ==
PROVIDERS: PCP Nurse Practitioner; Visit Provider Internal Medicine Gastroenterology
PROC: 0DJD8ZZ Inspection of Lower Intestinal Tract, Via Natural or Artificial Opening Endoscopic (ICD-10-PCS; CPT 45378; principal; 2023-11-10 09:00)
DX: R19.7 Diarrhea, unspecified (principal); K64.8 Other hemorrhoids
CPT/HCPCS: 45380

== ENCOUNTER 2023-12-25 15:42 | Emergency (ER) | payer OTHER, MEDICAID, SELFPAY ==
[2023-12-25 15:54] VITALS: BP 125/74; PULSE 74; RESP 16; TEMP 37.1; O2SAT 99
[2023-12-25] MEDS: TETANUS,DIPHTHERIA,AC PERTUSSIS ADULT (0.5 ML) BOOSTRIX IM (16:17)
--- NOTE | 2023-12-25 16:34 | ED.WOUNDLAC ---
HPI - Wound/Laceration General Chief Complaint: Wound/Laceration Stated Complaint: cut on left lower leg Time Seen by Provider: 12/25/23 16:00 Source: patient and RN notes reviewed Mode of arrival: ambulatory Limitations: no limitations History of Present Illness HPI narrative: Patient presents today complaining of skin tear to the left barbosa that was sustained 1 hour prior to arrival on a piece of metal in her brother's yard. She is not up-to-date on her tetanus vaccine. It was cleaned with peroxide immediately after the injury. Related Data Home Medications Medication Instructions Recorded Confirmed vortioxetine 20 mg tablet 20 mg PO DAILY 01/28/20 12/25/23 (Trintellix) trazodone 100 mg tablet 100 mg PO DAILY 03/17/20 12/25/23 bupropion HCl 150 mg 24 hr tablet, 300 mg PO DAILY 02/16/23 12/25/23 extended release (Wellbutrin XL) buspirone 7.5 mg tablet 7.5 mg PO BID 02/16/23 12/25/23 alprazolam 0.5 mg tablet 0.5 mg PO DAILY PRN Anxiety 08/03/23 12/25/23 valacyclovir 500 mg tablet See Rx Instructions .Route 11/08/23 12/25/23 .COMPLEX PRN other Allergies Allergy/AdvReac Type Severity Reaction Status Date / Time cat dander Allergy Mild sneezing, Verified 12/25/23 15:51 watering eyes Review of Systems Review of Systems: CONSTITUTIONAL: Denies body aches, fever, chills, or sweats. EYES: Denies visual changes, redness, or discharge. ENT: Denies rhinorrhea, congestion, sore throat, or otalgia. CARDIOVASCULAR: Denies chest pain, palpitations, or edema. RESPIRATORY: Denies cough or dyspnea. GASTROINTESTINAL: Denies abdominal pain, nausea, vomiting, or diarrhea. GENITOURINARY: Denies dysuria or hematuria. SKIN: Denies rash, itching. + skin tear MUSCULOSKELETAL: Denies back pain, joint pain, or myalgia. NEUROLOGIC: Denies headache, numbness, tingling, or weakness. PSYCH: Denies depression or anxiety. [facility] Past Medical History Medical History Anxiety Bloating Borborygmi Depression Deviated septum 1999 Genital herpes Hypothyroidism Leukopenia Saw heme/onc 03/19 Migraine Weight loss Surgical History Surgical History H/O breast augmentation 2013 H/O gynecological procedure colposcopy 11/21/19 H/O sinus surgery Open Window 2004 deviated septum Family History Family History Father , Congenital heart defect at age 35 Family history of congestive heart failure Mother , Brain aneurysm at age 53 No problems noted. Social History Social History Smoking status: Never smoker Alcohol intake: never Alcohol use details: occasional Substance use: never Substance use type: does not use Do You Feel Safe in your Home?: Yes Lack of Transportation: No Lack of Food: Never True Current Housing: I Have Housing Concerned About Future Housing: No Difficulty Paying Gas/Electric Bills: No Difficulty Paying for Meds: No Currently Unemployed: No Education: Associate Degree Living arrangements: with family Occupation/Education: occupation Additional occupation/education comments: [employer] Gender identity (if verbalized by the patient): Female Sexual Orientation (if Verbalized by the Patient): Straight or Heterosexual Spiritual care concerns: No Comments At time of signature, I have reviewed and agree with nursing past medical, surgical, social and family history unless otherwise noted. Please see nursing chart for further information. There is no relevant family history pertinent to the presenting complaint Exam Narrative: GENERAL: Well-appearing, well-nourished, and in no acute distress. HEAD: Normocephalic, atraumatic. EYES: EOMI. No redness or drainage. Conjunctivae
== END 2023-12-25 16:49 | disposition home or self-care (01) ==
PROVIDERS: Emergency Provider Nurse Practitioner; PCP Nurse Practitioner
DX: S81.812A Laceration without foreign body, left lower leg, initial encounter (principal); W45.8XXA Other foreign body or object entering through skin, initial encounter; Z23 Encounter for immunization; E03.9 Hypothyroidism, unspecified; F41.9 Anxiety disorder, unspecified; F32.A Depression, unspecified
CPT/HCPCS: 12002; 90471; 90715; 99212; G0463